=== PATIENT | female | born 1970 | race African-American/Black ===

== ENCOUNTER 2020-06-24 10:21 | Emergency (ER) | payer MEDICAID ==
[~2020-06-24] VITALS: Ht 160 cm; Wt 105.0 kg
[2020-06-24] MEDS ORDERED: IBUPROFEN 400MG TABLET PO ONE (11:15)
[2020-06-24] MEDS ORDERED: IBUP-2028 MT (12:00)
[2020-06-24 12:09] VITALS: BP 154/89
== END 2020-06-24 12:11 | disposition home or self-care (01) ==
LOC: ER 10:21
DX: M72.2 Plantar fascial fibromatosis (principal)
CPT/HCPCS: 73630; 99283

== ENCOUNTER 2021-06-21 19:12 | Emergency (ER) | payer SELFPAY ==
[~2021-06-21] VITALS: Ht 160 cm; Wt 107.5 kg
[~2021-06-21 19:12] MED LIST: IBUP-2028 MT
[2021-06-21] MEDS ORDERED: KETOROLAC 60MG/2ML VIAL IM ONE (22:30)
[2021-06-21 22:49] VITALS: BP 122/77
== END 2021-06-21 23:55 | disposition home or self-care (01) ==
LOC: ER 19:12
DX: M25.561 Pain in right knee (principal); Z98.890 Other specified postprocedural states
CPT/HCPCS: 73560; 93971; 96372; 99284; J1885